=== PATIENT | female | born 1955 | race Caucasian/White ===

== ENCOUNTER 2016-02-22 04:25 | Emergency (ER) | payer BC ==
[2016-02-22 05:37] LABS: BASOPHILS 0.4 % (0.0-2.0); EOSINOPHILS 1.5 % (0-7); HEMOGLOBIN 13.7 g/dL (12-16); IMMATURE GRANULOCYTES 0.2 % (0-5); LYMPHOCYTES 48.4 % (15-50); MCH 32.2 pg (26.0-34.0); MCHC 33.4 g/dL (31.0-37.0); MCV 96.2 fL (80.0-100.0); MEAN PLATELET VOLUME 10.4 fL (7.4-10.4); NEUTROPHILS 41.5 % (40-80); PLATELET COUNT 236 10x3/uL (130-400); RBC 4.26 10x6/uL (4.00-5.40); RDW 13.2 % (11.5-14.5); WBC 5.5 10x3/uL (4.8-10.8)
[2016-02-22 06:03] LABS: ALBUMIN 4.2 g/dL (3.4-5.0); ALKALINE PHOSPHATASE 119 U/L (46-116); ALT (SGPT) 42 U/L (10-68); BILIRUBIN - TOTAL 0.21 mg/dL (0.2-1.3); CALC OSMOLALITY 284 mosm/kg (275-300); CALCIUM 9.4 mg/dL (8.5-10.1); CHLORIDE - SERUM 106 mmol/L (98-107); CREATININE - SERUM 0.5 mg/dL (0.6-1.3); GLUCOSE 122 mg/dL (74-106); POTASSIUM - SERUM 3.9 mmol/L (3.5-5.1); PROTEIN - SERUM 7.7 g/dL (6.4-8.2); SODIUM 142 mmol/L (136-145); T4 THYROXINE 7.8 ug/dL (4.7-13.3); UREA NITROGEN 15 mg/dL (7-18); eGFR NON AFRICAN AMERICAN > 90 mL/min (90-120)
== END 2016-02-22 05:46 | disposition home or self-care (01) ==
LOC: D.ER 04:25
PROVIDERS: Emergency Medicine
DX: R00.2 Palpitations (principal); R94.31 Abnormal electrocardiogram [ECG] [EKG]

== ENCOUNTER 2017-07-08 23:37 | Emergency (ER) | payer BC | END 2017-07-09 00:36 | disposition home or self-care (01) | LOC: D.ER 23:37 | DX: F32.9 Major depressive disorder, single episode, unspecified (principal); F10.129 Alcohol abuse with intoxication, unspecified; I10 Essential (primary) hypertension ==

== ENCOUNTER 2020-07-13 13:48 | Emergency (ER) | payer BC ==
[~2020-07-13] VITALS: Ht 170.2 cm; Wt 59.1 kg
[2020-07-13 13:59] VITALS: Ht 170.2 cm; Wt 59.1 kg
== END 2020-07-13 17:14 | disposition home or self-care (01) ==
LOC: D.ER 13:48
DX: S09.90XA Unspecified injury of head, initial encounter (principal); S50.00XA Contusion of unspecified elbow, initial encounter; S80.00XA Contusion of unspecified knee, initial encounter; S20.212A Contusion of left front wall of thorax, initial encounter; W10.9XXA Fall (on) (from) unspecified stairs and steps, initial encounter; Y93.9 Activity, unspecified; Y92.9 Unspecified place or not applicable